=== PATIENT | male | born 1970 | race Caucasian/White ===

== ENCOUNTER → 2016-08-21 | Outpatient (CLI) | payer BC | LOC: OD 09:21 | PROVIDERS: ATTEND Physician Assistant | DX: M54.5 Low back pain (principal) | CPT/HCPCS: 74000 ==

== ENCOUNTER → 2016-10-06 | Outpatient (CLI) | payer BC ==
--- NOTE | 2016-10-06 17:36 | RADIOLOGY REPORT (SQ) ---
EXAM DESCRIPTION: U/S SCROTUM W/O DOPPLER COMPLETED DATE/TIME: 10/06/2016 5:10 pm REASON FOR STUDY: TESTICULAR PAIN N50.819 TESTICULAR PAIN, UNSPECIFIED COMPARISON: None. TECHNIQUE: Static and realtime mccallum scale imaging of the scrotum and testes. Selected color Doppler and spectral images recorded to document blood flow. LIMITATIONS: None. FINDINGS: RIGHT: TESTICLE: Normal size. 39 x 31 x 23 mm. Normal echotexture, normal blood flow. No mass. EPIDIDYMIS: Normal size, measuring 11 x 5 x 14 mm. There is a 7 x 4 x 5 mm well-defined hyperechoic lesion in the head of the epididymis. HYDROCELE OR VARICOCELE: No. HERNIA OR EXTRA-TESTICULAR MASS: No. OTHER: No other significant finding. LEFT: TESTICLE: Normal size. 39 x 28 x 20 mm. Normal echotexture. Normal blood flow. No mass. EPIDIDYMIS: Normal. 9 x 12 x 7 mm. HYDROCELE OR VARICOCELE: No. HERNIA OR EXTRA-TESTICULAR MASS: No. OTHER: No other significant finding. IMPRESSION: There is a nonspecific small hyperechoic lesion in the head of the right epididymis etio logy is uncertain. However, it could represent a small sperm granuloma. Benign or malignant neoplas m seems less likely. TECHNICAL DOCUMENTATION: JOB ID: [id number]- All Rights Reserved
== END ==
LOC: RAD 16:21
PROVIDERS: ATTEND Family Medicine
DX: N50.819 Testicular pain, unspecified (principal)
CPT/HCPCS: 76870

== ENCOUNTER → 2016-11-05 | Outpatient (CLI) | payer BC ==
--- NOTE | 2016-11-05 18:03 | RADIOLOGY REPORT (SQ) ---
EXAM DESCRIPTION: U/S RETROPERITON (RENAL/AORTA) COMPLETED DATE/TIME: 11/05/2016 5:27 pm REASON FOR STUDY: RIGHT KIDNEY PAIN N23 UNSPECIFIED RENAL COLIC COMPARISON: None. TECHNIQUE: Dynamic and static grayscale images acquired of the kidneys and bladder and recorded on P ACS. Additional selected color Doppler and spectral images recorded. LIMITATIONS: None. FINDINGS: RIGHT KIDNEY: Normal size, 12 cm. There is a 47 mm upper pole cyst. There is no solid ma ss. There is no calcification. There is some cortical thinning. LEFT KIDNEY: Normal size, 11.9 cm. There is mild cortical thinning. BLADDER: No masses. Ureteral jets were not seen. OTHER FINDINGS: No other significant finding. IMPRESSION: There appear to be mild atrophic changes in the kidneys. TECHNICAL DOCUMENTATION: JOB ID: [id number] [employer]- All Rights Reserved
== END ==
LOC: RAD 16:30
PROVIDERS: ATTEND Urology
DX: N23 Unspecified renal colic (principal)
CPT/HCPCS: 76770

== ENCOUNTER 2017-02-06 20:08 | Emergency (ER) | payer BC ==
--- NOTE | 2017-02-06 21:29 | RADIOLOGY REPORT (SQ) ---
EXAM DESCRIPTION: FINGER RIGHT COMPLETED DATE/TIME: 02/06/2017 9:22 pm REASON FOR STUDY: fall injury COMPARISON: None. NUMBER OF VIEWS: Three views. TECHNIQUE: AP, lateral, and oblique images acquired of the right fifth finger. LIMITATIONS: None. FINDINGS: MINERALIZATION: Normal. BONES: No acute fracture or dislocation. No worrisome bone lesions. SOFT TISSUES: No soft tissue swelling. No foreign body. OTHER: No other significant finding. IMPRESSION: NO RADIOGRAPHIC EVIDENCE OF ACUTE INJURY. COMMENT: SITE OF TRAUMA/COMPLAINT MARKED/STAMP COMPLETED: YES. TECHNICAL DOCUMENTATION: JOB ID: [id number] [employer]- All Rights Reserved
--- NOTE | 2017-02-06 21:55 | RADIOLOGY REPORT (SQ) ---
EXAM DESCRIPTION: CT HEAD WITHOUT COMPLETED DATE/TIME: 02/06/2017 9:48 pm REASON FOR STUDY: fall COMPARISON: None. TECHNIQUE: Axial images acquired through the brain without intravenous contrast. Images reviewed wi th bone, brain and subdural windows. Images stored on PACS. All CT scanners at this facility use dose modulation, iterative reconstruction, and/or weight based d osing when appropriate to reduce radiation dose to as low as reasonably achievable (ALARA). [facility]: Dose Right [facility]: CareDose [facility]: Dose Right [facility]: Teradose 4D [facility]: [employer] RADIATION DOSE: mGy. LIMITATIONS: None. FINDINGS: VENTRICLES: Normal size and contour. CEREBRUM: No masses. No hemorrhage. No midline shift. No evidence for acute infarction. Normal gra y/white matter differentiation. No areas of low density in the white matter. CEREBELLUM: No masses. No hemorrhage. No alteration of density. No evidence for acute infarction. EXTRAAXIAL SPACES: No fluid collections. No masses. ORBITS AND GLOBE: No intra- or extraconal masses. Normal contour of globe without masses. CALVARIUM: No fracture. PARANASAL SINUSES: No fluid or mucosal thickening. SOFT TISSUES: No mass or hematoma. OTHER: No other significant finding. IMPRESSION: NORMAL BRAIN CT WITHOUT CONTRAST. EVIDENCE OF ACUTE STROKE: NO. COMMENT: Quality ID # 436: Final reports with documentation of one or more dose reduction techniques (e.g., Automated exposure control, adjustment of the mA and/or kV according to patient size, use of iterative reconstruction technique) TECHNICAL DOCUMENTATION: JOB ID: [id number] [employer]- All Rights Reserved
--- NOTE | 2017-02-06 21:56 | RADIOLOGY REPORT (SQ) ---
EXAM DESCRIPTION: L SPINE WHOLE COMPLETED DATE/TIME: 02/06/2017 9:46 pm REASON FOR STUDY: fall COMPARISON: 05/19/2014 NUMBER OF VIEWS: Five views including obliques. TECHNIQUE: AP, lateral, oblique, and sacral radiographic images acquired of the lumbar spine. LIMITATIONS: None. FINDINGS: MINERALIZATION: Normal. SEGMENTATION: Normal. No transitional anatomy. ALIGNMENT: Normal. VERTEBRAE: Maintained height. No fracture or worrisome bone lesion. DISCS: Multilevel disc space narrowing with osteophytes. POSTERIOR ELEMENTS: Pedicles and facets are intact. No pars defect or posterior arch defects. Facet arthropathy is present. HARDWARE: None in the spine. PARASPINAL SOFT TISSUES: Normal. PELVIS: Intact as visualized. No fractures or worrisome bone lesions. SI joints intact. OTHER: No other significant finding. IMPRESSION: SPONDYLOSIS WITHOUT BONE LESION OR FRACTURE. TECHNICAL DOCUMENTATION: JOB ID: [id number] [employer]- All Rights Reserved
--- NOTE | 2017-02-06 22:07 | RADIOLOGY REPORT (SQ) ---
EXAM DESCRIPTION: CT CERVICAL SPINE WITHOUT COMPLETED DATE/TIME: 02/06/2017 9:58 pm REASON FOR STUDY: fall COMPARISON: None. TECHNIQUE: Axial images acquired through the cervical spine without intravenous contrast. Images re viewed with lung, soft tissue and bone windows. Reconstructed coronal and sagittal MPR images review ed. Images stored on PACS. All CT scanners at this facility use dose modulation, iterative reconstruction, and/or weight based d osing when appropriate to reduce radiation dose to as low as reasonably achievable (ALARA). [facility]: Dose Right [facility]: CareDose [facility]: Dose Right [facility]: Teradose 4D [facility]: [employer] RADIATION DOSE: Up-to-date CT equipment and radiation dose reduction techniques were employed. CTDIv ol: 20.8 mGy. DLP: 552 mGy-cm. mGy. LIMITATIONS: None. FINDINGS: ALIGNMENT: Anatomic. Mild dextroscoliosis. MINERALIZATION: Normal. 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 DISCS: Mild to moderate multilevel degenerative disc disease most severe at the C6-C7 level. FACETS, LATERAL MASSES, POSTERIOR ELEMENTS: Congenital fusion of the C3 and C4 posterior elements. N o fractures. No dislocation. No acute findings. HARDWARE: None in the spine. VISUALIZED RIBS: No fractures. LUNG APICES AND SOFT TISSUES: Partially calcified 10 mm nodule right lobe of the thyroid gland. Soft tissues otherwise unremarkable. Visible portions of the lungs are clear. OTHER: No other significant finding. 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 NO FRACTURE OR SUSPICIOUS OSSEOUS LESION. INCIDENTAL NOTE MADE OF PARTIALLY CALCIFIED 10 MM NODULE RIGHT LOBE OF THE THYROID GLAND. RECOMMEND FOLLOW-UP THYROID ULTRASOUND WHICH CAN BE PERFORMED NON URGENTLY AN OUTPATIENT. TECHNICAL DOCUMENTATION: JOB ID: [id number] Quality ID # [id number]: Final reports with documentation of one or more dose reduction techniques (e.g., Au tomated exposure control, adjustment of the mA and/or kV according to patient size, use of iterative reconstruction technique) 2010 [employer]- All Rights Reserved
[2017-02-06] MEDS ORDERED: ACETAMINOPHEN 325 MG TABLET PO ONE (22:08)
[2017-02-06] MEDS ORDERED: CYCLOBENZAPRINE HCL 10 MG TABLET PO ONE (23:08)
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
[2017-02-06 23:16] VITALS: BP 138/68
== END 2017-02-06 23:15 | disposition home or self-care (01) ==
LOC: ER 20:08
DX: S09.90XA Unspecified injury of head, initial encounter (principal); W17.89XA Other fall from one level to another, initial encounter; R42 Dizziness and giddiness; R11.0 Nausea; R51 Headache
CPT/HCPCS: 70450; 72110; 72125; 99284

== ENCOUNTER → 2017-02-18 | Outpatient (CLI) | payer BC ==
--- NOTE | 2017-02-19 11:56 | RADIOLOGY REPORT (SQ) ---
EXAM DESCRIPTION: U/S THYROID/SFT TISS HD NECK COMPLETED DATE/TIME: 02/18/2017 6:40 pm REASON FOR STUDY: NONTOXIC SINGLE THYROID NODULE E04.1 NONTOXIC SINGLE THYROID NODULE COMPARISON: CT cervical spine 02/06/2017 TECHNIQUE: Dynamic and static mccallum-scale images acquired of the thyroid gland. Selected additional c olor/power Doppler images recorded. All images stored to PACS. LIMITATIONS: None. FINDINGS: RIGHT LOBE: Right lobe thyroid is normal in size, 4.6 x 2 x 1.8 cm. In the mid upper pole right lobe thyroid, a solid nodule with calcifications is present, 1.7 x 1.1 x 1 cm in size. Ultras ound-guided fine-needle aspirate of this nodule is recommended. Elsewhere in the right lobe thyroid, small colloid cysts less than 5 mm in diameter are present of doubtful clinical significance. LEFT LOBE: Left lobe thyroid is normal in size, 4.3 x 1.7 x 1.9 cm. Homogeneous echotexture. No ann-marie id nodules. Multiple less than 5 mm colloid cysts are present. ISTHMUS: Normal size. Homogeneous echotexture. No cystic or solid masses. OTHER: No other significant finding. IMPRESSION: Right mid to upper pole thyroid nodule, 17 mm in greatest diameter, containing shadowing calcifications. Ultrasound-guided fine-needle aspirate of this nodule is recommended TECHNICAL DOCUMENTATION: JOB ID: [id number]- All Rights Reserved
== END ==
LOC: RAD 17:57
PROVIDERS: ATTEND Physician Assistant
DX: E04.1 Nontoxic single thyroid nodule (principal)
CPT/HCPCS: 76536

== ENCOUNTER → 2019-08-18 | Outpatient (CLI) | payer BC ==
[2019-08-18 14:33] LABS: ABSOLUTE EOSINOPHILS # (AUTO) 0.1 10^3/uL (0.0-0.6); ABSOLUTE LYMPHOCYTES (AUTO) 1.8 10^3/uL (0.5-4.7); ABSOLUTE MONOCYTES (AUTO) 0.3 10^3/uL (0.1-1.4); ABSOLUTE NEUT (AUTO) 3.2 10^3/uL (1.7-8.2); BASOPHILS % (AUTO) 0.4 % (0-2); EOSINOPHILS % (AUTO) 2.1 % (0-6); HEMATOCRIT 39.3 % (37.9-51.0); HEMOGLOBIN 13.9 g/dL (13.5-17.0); LYMPHOCYTES % (AUTO) 32.8 % (13-45); MEAN CORPUSCULAR HEMOGLOBIN 31.4 pg (27.0-33.4); MEAN CORPUSCULAR HGB CONC 35.4 g/dL (32.0-36.0); MEAN CORPUSCULAR VOLUME 89 fl (80-97); MONOCYTES % (AUTO) 6.2 % (3-13); PLATELET COUNT 199 10^3/uL (150-450); RED BLOOD COUNT 4.42 10^6/uL (4.35-5.55); RED CELL DISTRIBUTION WIDTH 13.6 % (11.5-14.0); SEGMENTED NEUTROPHILS % (AUTO) 58.5 % (42-78); TOTAL CELLS COUNTED % (AUTO) 100 %; WHITE BLOOD COUNT 5.5 10^3/uL (4.0-10.5)
[2019-08-18 14:47] LABS: A TYPE INFLUENZA AG NEGATIVE (NEGATIVE)
[2019-08-18 14:48] LABS: B INFLUENZA AG NEGATIVE (NEGATIVE)
[2019-08-18 14:52] LABS: ALBUMIN 4.6 g/dL (3.5-5.0); ALKALINE PHOSPHATASE 51 U/L (38-126); ANION GAP 7 (5-19); ASPARTATE AMINO TRANSFERASE 31 U/L (17-59); BILIRUBIN,TOTAL 1.2 mg/dL (0.2-1.3); BLOOD UREA NITROGEN 13 mg/dL (7-20); CALCIUM 9.9 mg/dL (8.4-10.2); CARBON DIOXIDE 31 mmol/L (22-30); CHLORIDE 101 mmol/L (98-107); GLUCOSE 125 mg/dL (75-110); POTASSIUM 4.1 mmol/L (3.6-5.0); TOTAL PROTEIN 7.8 g/dL (6.3-8.2)
--- NOTE | 2019-08-18 16:18 | RADIOLOGY REPORT (SQ) ---
EXAM DESCRIPTION: CHEST PA/LATERAL IMAGES COMPLETED DATE/TIME: 08/18/2019 2:34 pm REASON FOR STUDY: SHORTNESS OF BREATH COMPARISON: Chest films 04/03/2015 EXAM PARAMETERS: NUMBER OF VIEWS: two views TECHNIQUE: Digital Frontal and Lateral radiographic views of the chest acquired. RADIATION DOSE: NA LIMITATIONS: none FINDINGS: LUNGS AND PLEURA: No opacities, masses or pneumothorax. No pleural effusion. MEDIASTINUM AND HILAR STRUCTURES: No masses or contour abnormalities. HEART AND VASCULAR STRUCTURES: Heart normal size. No evidence for failure. BONES: No acute findings. HARDWARE: None in the chest. OTHER: No other significant finding. IMPRESSION: NO SIGNIFICANT RADIOGRAPHIC FINDING IN THE CHEST. TECHNICAL DOCUMENTATION: JOB ID: [id number] 2010 [employer]- All Rights Reserved Reading location - IP/workstation name: [id number]
== END ==
LOC: OD 14:00
PROVIDERS: ATTEND Physician Assistant
DX: R05 Cough (principal); R06.02 Shortness of breath
CPT/HCPCS: 71046; 80053; 85025; 87804

== ENCOUNTER → 2019-10-27 | Outpatient (CLI) | payer BC ==
--- NOTE | 2019-10-27 15:29 | RADIOLOGY REPORT (SQ) ---
EXAM DESCRIPTION: OS CALCIS/HEEL LEFT IMAGES COMPLETED DATE/TIME: 10/27/2019 1:04 pm REASON FOR STUDY: PAIN OF LEFT HEEL M79.672 PAIN IN LEFT FOOT COMPARISON: None. NUMBER OF VIEWS: Two views. TECHNIQUE: Plantar and oblique radiographic images acquired of the left calcaneous. LIMITATIONS: None. FINDINGS: MINERALIZATION: Normal. BONES: Small calcaneal spurs. No acute fracture or dislocation. No worrisome bone lesions. JOINTS: Intact. SOFT TISSUES: No soft tissue swelling. No foreign body. OTHER: No other significant finding. IMPRESSION: No acute findings. TECHNICAL DOCUMENTATION: JOB ID: [id number] 2010 [employer]- All Rights Reserved Reading location - IP/workstation name: [email or web address]
== END ==
LOC: OD 10:26
PROVIDERS: ATTEND Physician Assistant
DX: M79.672 Pain in left foot (principal)

== ENCOUNTER → 2020-05-26 | Outpatient (CLI) | payer BC ==
--- NOTE | 2020-05-26 11:09 | RADIOLOGY REPORT (SQ) ---
EXAM DESCRIPTION: CT HEAD WITHOUT IMAGES COMPLETED DATE/TIME: 05/26/2020 9:40 am REASON FOR STUDY: HEADACHE, UNSPECIFIED R51.9 HEADACHE, UNSPECIFIED COMPARISON: 02/06/2017 TECHNIQUE: Axial images acquired through the brain without intravenous contrast. Images reviewed wi th bone, brain and subdural windows. Additional sagittal and coronal reconstructions were generated. Images stored on PACS. All CT scanners at this facility use dose modulation, iterative reconstruction, and/or weight based d osing when appropriate to reduce radiation dose to as low as reasonably achievable (ALARA). [facility]: Dose Right [facility]: CareDose [facility]: Dose Right [facility]: Teradose 4D [facility]: Smart [place] [employer] RADIATION DOSE: CT Rad equipment meets quality standard of care and radiation dose reduction techniq ues were employed. CTDIvol: 53.2 mGy. DLP: 1070 mGy-cm. mGy. LIMITATIONS: None. FINDINGS: VENTRICLES: Normal size and contour. CEREBRUM: No masses. No hemorrhage. No midline shift. No evidence for acute infarction. Normal gra y/white matter differentiation. No areas of low density in the white matter. CEREBELLUM: No masses. No hemorrhage. No alteration of density. No evidence for acute infarction. EXTRAAXIAL SPACES: No fluid collections. No masses. ORBITS AND GLOBE: No intra- or extraconal masses. Normal contour of globe without masses. CALVARIUM: No fracture. PARANASAL SINUSES: No fluid or mucosal thickening. SOFT TISSUES: No mass or hematoma. OTHER: No other significant finding. IMPRESSION: NORMAL BRAIN CT WITHOUT CONTRAST. EVIDENCE OF ACUTE STROKE: NO. COMMENT: Quality ID # [id number]: Final reports with documentation of one or more dose reduction techniques (e.g., Automated exposure control, adjustment of the mA and/or kV according to patient size, use of iterative reconstruction technique) TECHNICAL DOCUMENTATION: JOB ID: [id number] 2010 [employer]- All Rights Reserved Reading location - IP/workstation name: [email or web address]
== END ==
LOC: RAD 09:00
PROVIDERS: ATTEND Physician Assistant
DX: R51.9 Headache, unspecified (principal)
CPT/HCPCS: 70450